=== PATIENT | male | born 1965 | race Caucasian/White ===

== ENCOUNTER 2018-09-27 11:24 | Emergency (ER) | payer OTHER ==
[2018-09-27 11:43] VITALS: BP 124/70; PULSE 87; TEMP 98.4
--- NOTE | 2018-09-27 11:43 | PDOC ---
Rapid Medical Evaluation Time Seen by Provider: 09/27/18 11:39 Medical Evaluation: 09/27/18 11:39 I have performed a brief in-person evaluation of this patient. The patient presents with a chief complaint of: "doesn't feel well", feels weak x 3 days, denies fever, N/V/D, + chills. per she removed "core of an abscess" from the back of his ear yesterday , unknown PMH, hx smoking/daily alcohol use Pertinent physical exam findings: well-appearing, NAD, I have ordered the following: basic labs The patient will proceed to the ED for further evaluation.
[2018-09-27 11:46] VITALS: BMI 18.6
[2018-09-27 12:51] LABS: BASO % 0.5 % (0-2.0); EOS % 1.4 % (0-4.5); HEMOGLOBIN 14.9 GM/dL (11.7-16.9); LYMPH % 19.9 % (8-40); MCH 34.4 pg (25.7-33.7); MEAN CELL VOLUME 101.4 fl (80-96); MEAN PLT VOLUME 7.3 fl (7.5-11.1); NEUT % 66.2 % (42.8-82.8); PLATELET COUNT 271 K/MM3 (134-434); RBC 4.33 M/mm3 (4.00-5.60); WHITE BLOOD COUNT 7.3 K/mm3 (4.0-10.0)
[2018-09-27 13:25] LABS: ALBUMIN 3.5 g/dl (3.4-5.0); BILIRUBIN,TOTAL 0.3 mg/dL (0.2-1); CALCIUM 8.6 mg/dL (8.5-10.1); CREATININE 0.9 mg/dL (0.55-1.3); POTASSIUM 4.3 mmol/L (3.5-5.1); TOT PROT 6.8 g/dl (6.4-8.2)
[2018-09-27 14:19] LABS: MAGNESIUM 2.2 mg/dL (1.8-2.4)
--- NOTE | 2018-09-27 14:38 | PDOC ---
History of Present Illness - General Chief Complaint: Weakness Stated Complaint: WEAKNESS Time Seen by Provider: 09/27/18 11:39 History Source: Patient Exam Limitations: No Limitations - History of Present Illness Initial Comments: 09/27/18 13:45 53-year-old male with no past medical history except for alcohol abuse presents to ED with complaints of generalized fatigue and weakness For the past 2 days without chest pain, shortness of breath, headache, dizziness, chest pain or shortness of breath. Patient denies recent illness, feet fever, chills urinary complaints of bowel complaints. Patient does state is homeless and tries to eat when he can. Timing/Duration: constant Severity: mild Associated Symptoms: reports: weakness Past History - Travel Traveled outside of the country in the last 30 days: No Close contact w/someone who was outside of country & ill: No - Past Medical History Home Medications: Ambulatory Orders Triamcinolone 0.1% Ointment [Aristocort 0.1% Ointment -] 1 applic TP DAILY #1 tube 09/27/18 COPD: No - Immunization History Immunization Up to Date: No - Suicide/Smoking/Psychosocial Hx Smoking History: Current every day smoker Number of Cigarettes Smoked Daily: 10 Information on smoking cessation initiated: No Hx Alcohol Use: Yes Drug/Substance Use Hx: No Patient Lives Alone: No Lives with/in: spouse/SO Review of Systems - Review of Systems Able to Perform ROS?: Yes Constitutional: Yes: Weakness. No: Loss of Appetite, Weight Stable, Unintentional Wgt. Loss, Unexplained wgt Loss HEENTM: No: Symptoms Reported Respiratory: No: Symptoms reported Cardiac (ROS): No: Symptoms Reported ABD/GI: No: Symptoms Reported : No: Symptoms Reported Musculoskeletal: No: Symptoms Reported Integumentary: No: Symptoms Reported Neurological: Yes: Weakness. No: Headache Endocrine: No: Symptoms Reported Hematologic/Lymphatic: No: Symptoms Reported *Physical Exam - Vital Signs Last Vital Signs Temp Pulse Resp BP Pulse Ox 98.4 F 87 18 124/70 99 09/27/18 11:39 09/27/18 11:39 09/27/18 11:39 09/27/18 11:39 09/27/18 11:39 - Physical Exam General Appearance: Yes: Disheveled, Thin. No: Apparent Distress, Alcohol on Breath HEENT: negative: Pale Conjunctivae Neck: positive: Normal Thyroid Respiratory/Chest: positive: Lungs Clear, Normal Breath Sounds. negative: Respiratory Distress, Accessory Muscle Use Cardiovascular: positive: Regular Rhythm, Regular Rate. negative: Murmur Gastrointestinal/Abdominal: positive: Soft. negative: Tenderness Extremity: positive: Normal Inspection Integumentary: positive: Normal Color, Dry, Warm Neurologic: positive: Motor Strength 5/5 (ambulatory) ED Treatment Course - LABORATORY CBC & Chemistry Diagram: 09/27/18 12:30 09/27/18 12:30 - ADDITIONAL ORDERS Additional order review: Laboratory Results 09/27/18 12:30 Sodium 136 Potassium 4.3 Chloride 103 Carbon Dioxide 26 Anion Gap 7 L BUN 14 Creatinine 0.9 Est GFR (CKD-EPI)AfAm 112.62 Est GFR (CKD-EPI)NonAf 97.17 Random Glucose 138 H Calcium 8.6 Magnesium 2.2 Total Bilirubin 0.3 AST 54 H ALT 61 Alkaline Phosphatase 82 Total Protein 6.8 Albumin 3.5 09/27/18 12:30 RBC 4.33 MCV 101.4 H MCHC 34.0 RDW 13.0 MPV 7.3 L Neutrophils % 66.2 Lymphocytes % 19.9 Monocytes % 12.0 H Eosinophils % 1.4 Basophils % 0.5 - RADIOLOGY Radiology Studies Ordered: Category Date Time Status CHEST PA & LAT [RAD] Stat Radiology 09/27/18 12:32 Ordered Medical Decision Making - Medical Decision Making 09/27/18 13:48 CC: Generalized weakness for the past 2 days without fever, chills, joint pain, weight loss, rash, cough or night sweats. Patient is homeless and drinks alcohol on a daily basis. Exam. No acute findings. Plan labs, chest x-ray, EKG and urine ordered 09/27/18 14:49 Laboratory Tests 09/27/18 09/27/18 12:30 12:30 WBC 7.3 Hgb 14.9 Hct 44.0 MCV 101.4 H MPV 7.3 L Monocytes % 12.0 H Sodium 136 Potassium 4.3 Chloride 103 Carbon Dioxide 26 Anion Gap 7 L BUN 14 Creatinine 0.9 Random Glucose 138 H Calcium 8.6 Magnesium 2.2 Total Bilirubin 0.3 AST 54 H ALT 61 Alkaline Phosphatase 82 Total Protein 6.8 Albumin 3.5 Chest x-ray negative for acute findings. Patient ate lunch tray and is refusing to give urine. Patient will be discharged home and requesting transportation . patient also requesting cream for his eczema to his hands and elbows *DC/Admit/Observation/Transfer Diagnosis at time of Disposition: Weakness, Alcohol abuse, Eczema - Discharge Dispostion Disposition: HOME Condition at time of disposition: Good - Prescriptions Prescriptions: Triamcinolone 0.1% Ointment [Aristocort 0.1% Ointment -] 1 applic TP DAILY #1 tube - Referrals - Patient Instructions Printed Discharge Instructions: DI for Fatigue Additional Instructions: Drink plenty of fluids and eat well balanced meals. Use topical ointment as prescribed - Post Discharge Activity
== END 2018-09-27 15:05 | disposition home or self-care (01) ==
LOC: JER 11:24
DX: R53.1 Weakness (principal); F10.10 Alcohol abuse, uncomplicated; F17.210 Nicotine dependence, cigarettes, uncomplicated; L30.9 Dermatitis, unspecified; Z59.0 Homelessness
CPT/HCPCS: 36415; 71046-TC-FY; 80053; 83735; 85025; 99282-25

== ENCOUNTER 2019-12-01 23:36 | Inpatient (IN) | payer OTHER ==
[2019-12-02 00:02] VITALS: BMI 17.9
--- NOTE | 2019-12-02 00:18 | HP ---
CIWA Score Nausea/Vomitin-No Nausea/No Vomiting Muscle Tremors: None Anxiety: 4-Mod. Anxious/Guarded Agitation: 4-Moderately Restless Paroxysmal Sweats: 3 Orientation: 2-Disoriented Date<2 days Tacttile Disturbances: 0-None Auditory Disturbances: 0-None Visual Disturbances: 0-None Headache: 0-None Present CIWA-Ar Total Score: 13 - Admission Criteria [facility] Guidelines: Admission for Medically Managed Detox: Requires at least one of the followin. CIWA greater than 12 2. Seizures within the past 24 hours 3. Delirium tremens within the past 24 hours 4. Hallucinations within the past 24 hours 5. Acute intervention needed for co occurring medical disorder 6. Acute intervention needed for co occurring psychiatric disorder 7. Severe withdrawal that cannot be handled at a lower level of care (continued vomiting, continued diarrhea, abnormal vital signs) requiring intravenous medication and/or fluids 8. Patient presents the following: CIWA greater than 12 Admission Criteria Met: Admission criteria met Admitting History and Physical - Smoking History Smoking history: Current every day smoker Aproximately how many cigarettes per day: 10 - Alcohol/Substance Use Hx Alcohol Use: Yes Admission ROS S - [facility] Chief Complaint: SEEKING DETOX FOR C/O WITHDRAWAL SX'S Allergies/Adverse Reactions: Allergies Allergy/AdvReac Type Severity Reaction Status Date / Time No Known Allergies Allergy Verified 12/01/19 23:52 History of Present Illness: HERE FOR ALCOHOL DETOX. CLIENT IS SELF REFERRED. FIRST ADMISSION. PRESENTS WITH C/O ALCOHOL WITHDRAWAL. " AM GOING TO.... IF i DONT GET ANY LIBRIIUM". HE REPORTS DAILY ALCOHOL INTAKE. LAST BEING A FEW HOURS AGO. "I DRINK ALL DAY". 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 DENIES SEIZURES, SI/HI/AVH. DENIES ANY CLEAN TIME IN THE PAST 12 MONTHS. REPORTS COCAINE ABUSE. DENIES IVDU. HOMELESS, UNEMPLOYED, DENIES LEGALS Exam Limitations: Intoxication (WITH ONSET OF WITHDRAWAL SX'S) - Ebola screening Have you traveled outside of the country in the last 21 days: No Have you had contact with anyone from an Ebola affected area: No Have you been sick,other than usual withdrawal symptoms: No Do you have a fever: No - Review of Systems Constitutional: Loss of Appetite, Malaise, Night Sweats, Changes in sleep, Unintentional Wgt. Loss EENT: reports: No Symptoms Reported Respiratory: reports: No Symptoms reported Cardiac: reports: No Symptoms Reported GI: reports: Poor Appetite, Poor Fluid Intake : reports: No Symptoms Reported Musculoskeletal: reports: Neck Pain (CHRONIC) Integumentary: reports: Flushing, Sweating Neuro: reports: Tremors Endocrine: reports: No Symptoms Reported Hematology: reports: No Symptoms Reported Psychiatric: reports: Agitated (IRRITAble), Anxious, Depressed (DENIES SI) Other Systems: Reviewed and Negative Patient History - Patient Medical History Hx Anemia: No Hx Asthma: No Hx Chronic Obstructive Pulmonary Disease (COPD): No Hx Cancer: No Hx Cardiac Disorders: No Hx Congestive Heart Failure: No Hx Hypertension: No Hx Hypercholesterolemia: No Hx Pacemaker: No HX Cerebrovascular Accident: No Hx Seizures: No Hx Dementia: No Hx Diabetes: No Hx Gastrointestinal Disorders: No Hx Liver Disease: No Hx Genitourinary Disorders: No Hx Sexually Transmitted Disorders: No Hx Renal Disease (ESRD): No Hx Thyroid Disease: No Hx Human Immunodeficiency Virus (HIV): No Hx Hepatitis C: No Hx Depression: Yes (NO MEDS) Hx Suicide Attempt: Yes (LAST ATTEMPT 10 YEARS AGO BY HANGING SELF) Hx Bipolar Disorder: No Hx Schizophrenia: No Other Medical History: DENIES - Patient Surgical History Past Surgical History: No - PPD History Previous Implant?: Yes Documented Results: Negative w/o proof Implanted On Prior [facility] Admission?: No PPD to be Administered?: Yes - Smoking Cessation Smoking history: Current every day smoker Have you smoked in the past 12 months: Yes Aproximately how many cigarettes per day: 20 Cigars Per Day: 0 Hx Chewing Tobacco Use: No Initiated information on smoking cessation: Yes 'Breaking Loose' booklet given: 12/02/19 - Substance & Tx. History Hx Alcohol Use: Yes Hx Substance Use: Yes Substance Use Type: Alcohol, Cocaine Hx Substance Use Treatment: Yes ([facility]) - Substances abused Alcohol Other (specify): Beer, Vodka Substance route: Oral Frequency: Daily Amount used: 10/23oz cans of beer, 4 pints of liquor Age of first use: 18 Date of last use: 12/01/19 PCP Substance route: Smoking Frequency: Daily Amount used: 2 blunts Age of first use: 35 Date of last use: 11/30/19 Crack Substance route: Smoking Frequency: 1-2 times per week Amount used: $100 Age of first use: 32 Date of last use: 12/01/19 Admission Physical Exam [facility] - Vital Signs Vital Signs: Vital Signs - 24 hr 12/01/19 23:55 Temperature 97.1 F L Pulse Rate 101 H Respiratory 18 Rate Blood Pressure 125/82 - Physical General Appearance: Yes: Moderate Distress, Intoxicated, Tremorous (FELT), Irritable, Anxious HEENTM: Yes: EOMI, Normocephalic, Normal Voice, LUCINDA, Pharynx Normal Respiratory: Yes: Chest Non-Tender, Lungs Clear, Normal Breath Sounds, No Respiratory Distress, No Accessory Muscle Use Neck: Yes: No masses,lesions,Nodules, Supple, Trachea in good position Breast: Yes: Breasts Symetrical Cardiology: Yes: Regular Rhythm, S1, S2, Tachycardia Abdominal: Yes: Non Tender, Soft, Increased Bowel Sounds Genitourinary: Yes: Within Normal Limits Back: Yes: Normal Inspection Musculoskeletal: Yes: full range of Motion, Gait Steady Extremities: Yes: Normal Capillary Refill, Normal Range of Motion, Non-Tender, Tremors (FELT) Neurological: Yes: Alert, Motor Strength 5/5, Confused (ABOUT DATE), Depressed Affect, Other (IRRITABLE) Integumentary: Yes: Dry, Warm, Rash (PSORIATIC PATCHES TO ALL EXTREMITIES, TRUNK TO INCLUDE CHEST ABD AND BACK) Lymphatic: Yes: Within Normal Limits - Diagnostic (1) Alcohol dependence with withdrawal, uncomplicated Current Visit: Yes Status: Acute (2) Cocaine dependence, uncomplicated Current Visit: Yes Status: Acute (3) At risk for dehydration due to poor fluid intake Current Visit: Yes Status: Acute (4) Homeless Current Visit: Yes Status: Suspected Comment: REPORTED (5) Depressed affect Current Visit: Yes Status: Acute (6) Alcohol intoxication Current Visit: Yes Status: Acute Qualifiers: Complication of substance-induced condition: uncomplicated Qualified Code(s): F10.920 - Alcohol use, unspecified with intoxication, uncomplicated (7) Psoriasis Current Visit: Yes Status: Chronic Cleared for Admission [facility] - Detox or Rehab [facility] Level of Care: Medically Managed Detox Regimen/Protocol: Librium Claeared for Rehab Admission: No Inpatient Rehab Admission - Rehab Decision to Admit Inpatient rehab admission?: No
[2019-12-02] MEDS ORDERED: MENTHOL/PHENOL 1 EACH UD MM PRN (00:26)
[2019-12-02] MEDS ORDERED: ONDANSETRON *ODT* 4 MG TABLET SL ONE (00:26)
[2019-12-02] MEDS ORDERED: chlordiazePOXIDE HCL 25 MG CAPSULE PO PRN (00:26)
[2019-12-02] MEDS ORDERED: ACETAMINOPHEN 325 MG TABLET (FP) PO PRN ×2 (00:26)
[2019-12-02] MEDS ORDERED: IBUPROFEN 400 MG TABLET (FP) PO PRN (00:26)
[2019-12-02] MEDS ORDERED: NICOTINE POLACRILEX 2 MG GUM BUC PRN (00:26)
[2019-12-02] MEDS ORDERED: MAGNESIUM CITRATE 300 ML BOTTLE PO PRN (00:26)
[2019-12-02] MEDS ORDERED: METHOCARBAMOL 500 MG TABLET PO PRN (00:26)
[2019-12-02] MEDS ORDERED: MAGNESIUM HYDROX 2400MG/30ML ORAL SUSPENSION 30 ML CUP PO PRN (00:26)
[2019-12-02] MEDS ORDERED: guaiFENesin 200 MG/10 ML 10 ML UNIT-DOSE CUPS PO PRN (00:26)
[2019-12-02] MEDS ORDERED: P-EPHED 60MG/TRIPROLIDI 2.5MG TABLET PO PRN (00:26)
[2019-12-02] MEDS ORDERED: MAG HYDROX/AL HYDROX/SIMETH 30 ML UNIT-DOSE CUP PO PRN (00:26)
[2019-12-02] MEDS ORDERED: BISMUTH SUBSALICYLATE 524 MG/30 ML UD PO PRN (00:26)
[2019-12-02] MEDS ORDERED: DICYCLOMINE HCL 10 MG CAPSULE PO PRN (00:26)
[2019-12-02] MEDS ORDERED: HYDROCORTISONE 1% TOPICAL OINT 30 GM TUBE TP PRN (00:48)
[2019-12-02] MEDS: hydrOXYzine PAMOATE 25 MG CAPSULE (FP) PO SCH ×4 (06:21→17:34)
[2019-12-02] MEDS: chlordiazePOXIDE HCL 25 MG CAPSULE PO SCH ×3 (06:21→17:34)
--- NOTE | 2019-12-02 09:10 | PN ---
S CIWA - CIWA Score Nausea/Vomitin-Mild Nausea/No Vomiting Muscle Tremors: 2 Anxiety: 2 Agitation: 2 Paroxysmal Sweats: No Perspiration Orientation: 0-Oriented Tacttile Disturbances: 1-Very Mild Itch/Numbness Auditory Disturbances: 0-None Visual Disturbances: 0-None Headache: 2-Mild CIWA-Ar Total Score: 10 [facility] Progress Note (SOAP) Subjective: alert,irritable,anxious,interrupted sleep,tremor,pain in the body,nausea Objective: 12/02/19 09:09 Vital Signs Temperature 97.7 F 12/02/19 08:51 Pulse Rate 91 H 12/02/19 08:51 Respiratory Rate 16 12/02/19 08:51 Blood Pressure 126/78 12/02/19 08:51 O2 Sat by Pulse Oximetry (%) 97 12/02/19 05:30 12/02/19 09:10 labs pending Assessment: 12/02/19 09:10 withdrawal symptom Plan: continue detox librium regimen
[2019-12-02] MEDS ORDERED: NICOTINE 21 MG/24 HOURS TOPICAL PATCH TD SCH (10:00)
[2019-12-02] MEDS ORDERED: PRENATAL VITAMINS W/ FOLIC ACID TABLET (FP) PO SCH (10:00)
--- NOTE | 2019-12-02 10:57 | EKG ---
Test Reason : Blood Pressure : / mmHG Vent. Rate : 082 BPM Atrial Rate : 082 BPM P-R Int : 146 ms QRS Dur : 096 ms QT Int : 386 ms P-R-T Axes : 073 069 063 degrees QTc Int : 450 ms NORMAL SINUS RHYTHM NORMAL ECG WHEN COMPARED WITH ECG OF 07-MAY-2010 14:19, QT HAS LENGTHENED Confirmed by Emilia Holloway ([id number]) on 12/02/2019 10:57:09 AM Referred By: Confirmed By:Emilia Holloway
--- NOTE | 2019-12-02 10:58 | CONSULT ---
[facility] Psychiatric Consult - Data Date of interview: 12/02/19 Admission source: [facility] Identifying data: First visit to [facility] and admission to [address] [place] [address] for this 54 y/o male self-referred for detoxification treatment. LASHANDA issues : alcohol, nicotine, phencyclidine. 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 Substance Abuse History: Discussed with the patient. LASHANDA profile as follows : Smoking history: Current every day smoker. Have you smoked in the past 12 months: Yes. Aproximately how many cigarettes per day: 20. Cigars Per Day: 0. Hx Chewing Tobacco Use: No. Initiated information on smoking cessation: Yes. 'Breaking Loose' booklet given: 12/02/19. - Substance & Tx. History. Hx Alcohol Use: Yes. Hx Substance Use: Yes. Substance Use Type: Alcohol, Cocaine. Hx Substance Use Treatment: Yes ([facility]). - Substances abused. Alcohol. Other (specify): Beer, Vodka. Substance route: Oral. Frequency: Daily. Amount used: 18oz cans of beer, 4 pints of liquor. Age of first use: 18. Date of last use: 12/01/19. PCP. Substance route: Smoking. Frequency: Daily. Amount used: 2 blunts. Age of first use: 35. Date of last use: 11/30/19. Crack. Substance route: Smoking. Frequency: 1-2 times per week. Amount used: $100. Age of first use: 32. Date of last use: 12/01/19 Medical History: Medical history is remarkable for psoriasis. Psychiatric History: Patient denies history of psychiatric hospitalizations, OPD care or suicide attempts. Physical/Sexual Abuse/Trauma History: Patient denies. Additional Comment: No toxicology for review. Mental Status Exam - Mental Status Exam Alert and Oriented to: Time, Place, Person Cognitive Function: Good Patient Appearance: Unkempt, Disheveled Mood: Nervous, Withdrawn, Irritable Affect: Mood Congruent, Constricted Patient Behavior: Fatigued, Appropriate, Cooperative Speech Pattern: Clear, Appropriate Voice Loudness: Normal Thought Process: Intact, Goal Oriented Thought Disorder: Not Present Hallucinations: Denies Suicidal Ideation: Denies Homicidal Ideation: Denies Insight/Judgement: Poor Sleep: Well (as per self-report) Appetite: Good Gait/Station: Normal Psychiatric Findings - Problem List ([place] 1, 2,3) (1) Alcohol dependence with withdrawal, uncomplicated Current Visit: Yes Status: Acute (2) Cocaine dependence, uncomplicated Current Visit: Yes Status: Chronic (3) Phencyclidine abuse Current Visit: Yes Status: Chronic (4) Nicotine dependence Current Visit: Yes Status: Chronic - Initial Treatment Plan Initial Treatment Plan: Psychoeducation. Sleep hygiene. Detoxification. Observation.
[2019-12-02 11:49] LABS: HEMATOCRIT 42.7 % (35.4-49); HEMOGLOBIN 14.2 GM/dL (11.7-16.9); MCH 34.4 pg (25.7-33.7); MCHC 33.2 g/dl (32.0-35.9); MEAN CELL VOLUME 103.5 fl (80-96); PLATELET COUNT 243 K/MM3 (134-434); RBC 4.13 M/mm3 (4.00-5.60); RDW 12.2 % (11.9-15.9); WHITE BLOOD COUNT 5.8 K/mm3 (4.0-10.0)
[2019-12-02 11:57] LABS: ALBUMIN 3.7 g/dl (3.4-5.0); BILIRUBIN,TOTAL 0.7 mg/dL (0.2-1); BLOOD UREA NITROGEN 15.9 mg/dL (7-18); CALCIUM 8.7 mg/dL (8.5-10.1); CREATININE 0.8 mg/dL (0.55-1.3); POTASSIUM 3.4 mmol/L (3.5-5.1)
[2019-12-02 16:43] LABS: PH,URINE 5.5 (5.0-8.0); URINE APPEARANCE CLEAR; URINE BILIRUBIN NEGATIVE (NEGATIVE); URINE COLOR YELLOW; URINE GLUCOSE (UA) NEGATIVE (NEGATIVE); URINE KETONE NEGATIVE (NEGATIVE); URINE LEUK ESTERASE NEGATIVE (NEGATIVE); URINE NITRITE NEGATIVE (NEGATIVE); URINE PROTEIN NEGATIVE (NEGATIVE); URINE UROBILINOGEN 0.2 mg/dL (0.2-1.0)
[2019-12-02 17:06] VITALS: BP 139/88; PULSE 81; TEMP 97.1
--- NOTE | 2019-12-02 19:43 | DS ---
[facility] Detox Discharge Summary Admission Date: 12/02/19 Discharge Date: 12/02/19 (AMA) - History Present History: Alcohol Dependence, Cocaine Dependence, Opioid Dependence, Pcp Dependence Additional Comments: Was informed RN that patient left AMA, refused to wait for the provider to examine. Pertinent Past History: History of Psoriasis, depression, nicotine, alcohol, crack/cocaine, and PCP use disorder. - Physical Exam Results Vital Signs: Vital Signs Temperature 97.1 F L 12/02/19 16:38 Pulse Rate 81 12/02/19 16:38 Respiratory Rate 16 12/02/19 16:38 Blood Pressure 139/88 12/02/19 16:38 O2 Sat by Pulse Oximetry (%) 99 12/02/19 13:03 Vital Signs 12/02/19 12/02/19 13:03 16:38 Temperature 97.7 F 97.1 F L Pulse Rate 85 81 Respiratory 18 16 Rate Blood Pressure 128/76 139/88 O2 Sat by Pulse 99 Oximetry (%) Pertinent Admission Physical Exam Findings: Withdrawal symptoms - Medication Discharge Medications: Ambulatory Orders Triamcinolone 0.1% Ointment [Aristocort 0.1% Ointment -] 1 applic TP DAILY #1 tube 09/27/18 Hydrocortisone 2.5% Lotion [Hytone 2.5% Lotion -] 1 applic TP BID 12/01/19 - Diagnosis (1) Alcohol dependence with withdrawal, uncomplicated Current Visit: Yes Status: Acute (2) Cocaine dependence, uncomplicated Current Visit: Yes Status: Chronic (3) Nicotine dependence Current Visit: Yes Status: Chronic (4) Phencyclidine abuse Current Visit: Yes Status: Chronic (5) Psoriasis Current Visit: Yes Status: Chronic - AMA Did Patient Leave Against Medical Advice: Yes ( Refused to wait for provider to examine.)
[2019-12-02] MEDS ORDERED: THIAMINE HCL 100 MG TABLET (FP) PO SCH (22:00)
[2019-12-02] MEDS ORDERED: MELATONIN 5 MG TABLETS PO SCH (22:00)
[2019-12-03] MEDS ORDERED: chlordiazePOXIDE HCL 25 MG CAPSULE PO SCH (05:00)
[2019-12-04] MEDS ORDERED: chlordiazePOXIDE HCL 10 MG CAPSULE PO PRN
[2019-12-04] MEDS ORDERED: chlordiazePOXIDE HCL 10 MG CAPSULE PO SCH (05:00)
[2019-12-05] MEDS ORDERED: chlordiazePOXIDE HCL 10 MG CAPSULE PO SCH (05:00)
[2019-12-06] MEDS ORDERED: chlordiazePOXIDE HCL 10 MG CAPSULE PO ONE (05:00)
== END 2019-12-02 19:30 | disposition left against medical advice (07) | DRG 770 ==
LOC: YASAS 23:36 → Y3N 12-02 01:05
PROVIDERS: ADMIT Allergy & Immunology; ATTEND Allergy & Immunology
PROC: HZ2ZZZZ Detoxification Services for Substance Abuse Treatment (ICD-10-PCS; principal; 2019-12-02)
DX: F10.230 Alcohol dependence with withdrawal, uncomplicated (principal); F14.20 Cocaine dependence, uncomplicated; F16.20 Hallucinogen dependence, uncomplicated; F17.210 Nicotine dependence, cigarettes, uncomplicated; F32.9 Major depressive disorder, single episode, unspecified; L40.9 Psoriasis, unspecified; R63.8 Other symptoms and signs concerning food and fluid intake; R45.89 Other symptoms and signs involving emotional state; Z91.5 Personal history of self-harm; Z59.0 Homelessness
CPT/HCPCS: 36415; 80053; 81003; 85027; 86780; 93005; 93010; U0003

== ENCOUNTER 2020-05-27 17:59 | Inpatient (IN) | payer OTHER ==
[2020-05-27 18:56] VITALS: BMI 19.5
[2020-05-27] MEDS ORDERED: ACETAMINOPHEN 325 MG TABLET (FP) PO PRN ×2 (19:52)
[2020-05-27] MEDS ORDERED: NICOTINE POLACRILEX 2 MG GUM BUC PRN (19:52)
[2020-05-27] MEDS ORDERED: MAG HYDROX/AL HYDROX/SIMETH 30 ML UNIT-DOSE CUP PO PRN (19:52)
[2020-05-27] MEDS ORDERED: hydrOXYzine PAMOATE 25 MG CAPSULE (FP) PO PRN (19:52)
[2020-05-27] MEDS ORDERED: MAGNESIUM HYDROX 2400MG/30ML ORAL SUSPENSION 30 ML CUP PO PRN (19:52)
[2020-05-27] MEDS ORDERED: BISMUTH SUBSALICYLATE 524 MG/30 ML UD PO PRN (19:52)
[2020-05-27] MEDS ORDERED: MELATONIN 5 MG TABLETS PO PRN (19:52)
[2020-05-27] MEDS ORDERED: MAGNESIUM CITRATE 300 ML BOTTLE PO PRN (19:52)
[2020-05-27] MEDS ORDERED: MENTHOL/PHENOL 1 EACH UD MM PRN (19:52)
[2020-05-27] MEDS ORDERED: ONDANSETRON *ODT* 4 MG TABLET SL PRN (19:52)
[2020-05-27] MEDS ORDERED: METHOCARBAMOL 500 MG TABLET PO PRN (19:52)
[2020-05-27] MEDS ORDERED: chlordiazePOXIDE HCL 25 MG CAPSULE PO PRN (19:53)
[2020-05-27] MEDS ORDERED: chlordiazePOXIDE HCL 25 MG CAPSULE PO ONE (19:53)
[2020-05-27] MEDS: AMOXICILLIN 500 MG CAPSULE (FP) PO SCH (22:35)
[2020-05-27] MEDS: THIAMINE HCL 100 MG TABLET (FP) PO SCH (22:35)
[2020-05-27] MEDS: chlordiazePOXIDE HCL 25 MG CAPSULE PO SCH (22:35)
[2020-05-27] MEDS: BETAMETHASONE DIP 0.05% TP LOTION 30 ML BOTTLE TP SCH (23:32)
[2020-05-28] MEDS: chlordiazePOXIDE HCL 25 MG CAPSULE PO SCH ×4 (05:24→22:03)
[2020-05-28] MEDS: AMOXICILLIN 500 MG CAPSULE (FP) PO SCH ×2 (10:11→22:03)
[2020-05-28] MEDS: PRENATAL VITAMINS W/ FOLIC ACID TABLET (FP) PO SCH (10:11)
[2020-05-28] MEDS: IBUPROFEN 400 MG TABLET (FP) PO PRN ×2 (10:13→17:31)
[2020-05-28] MEDS: BETAMETHASONE DIP 0.05% TP LOTION 30 ML BOTTLE TP SCH (10:16)
[2020-05-28 10:29] LABS: POTASSIUM 3.9 mmol/L (3.5-5.1)
[2020-05-28 10:32] LABS: ALBUMIN 3.5 g/dl (3.4-5.0); BLOOD UREA NITROGEN 13.6 mg/dL (7-18); CALCIUM 8.9 mg/dL (8.5-10.1)
[2020-05-28 10:35] LABS: CREATININE 0.8 mg/dL (0.55-1.3)
[2020-05-28 10:37] LABS: BILIRUBIN,TOTAL 1.3 mg/dL (0.2-1); TOT PROT 6.7 g/dl (6.4-8.2)
[2020-05-28 10:44] LABS: HEMATOCRIT 41.9 % (35.4-49); HEMOGLOBIN 14.2 GM/dL (11.7-16.9); MCH 34.6 pg (25.7-33.7); MCHC 33.9 g/dl (32.0-35.9); MEAN CELL VOLUME 101.9 fl (80-96); MEAN PLT VOLUME 7.6 fl (7.5-11.1); PLATELET COUNT 297 K/MM3 (134-434); RBC 4.12 M/mm3 (4.00-5.60); RDW 12.6 % (11.9-15.9); WHITE BLOOD COUNT 6.4 K/mm3 (4.0-10.0)
[2020-05-28] MEDS ORDERED: COLLOIDAL OATMEAL 1 BAR EACH TP ONE (11:06)
[2020-05-28] MEDS: CHOLECALCIFEROL (VIT D3) 1,000 UNIT (25 MCG) TABLET PO SCH (11:24)
[2020-05-28] MEDS: THIAMINE HCL 100 MG TABLET (FP) PO SCH (22:03)
[2020-05-29] MEDS: chlordiazePOXIDE HCL 25 MG CAPSULE PO SCH ×2 (05:23→10:04)
[2020-05-29] MEDS: CHOLECALCIFEROL (VIT D3) 1,000 UNIT (25 MCG) TABLET PO SCH (10:02)
[2020-05-29] MEDS: PRENATAL VITAMINS W/ FOLIC ACID TABLET (FP) PO SCH (10:02)
[2020-05-29] MEDS: BETAMETHASONE DIP 0.05% TP LOTION 30 ML BOTTLE TP SCH (10:07)
[2020-05-29] MEDS: AMOXICILLIN 500 MG CAPSULE (FP) PO SCH (10:56)
[2020-05-29 12:38] VITALS: BP 139/90; PULSE 99; TEMP 97.5
[2020-05-30] MEDS ORDERED: chlordiazePOXIDE HCL 10 MG CAPSULE PO PRN
[2020-05-30] MEDS ORDERED: chlordiazePOXIDE HCL 10 MG CAPSULE PO SCH (05:00)
[2020-05-31] MEDS ORDERED: chlordiazePOXIDE HCL 10 MG CAPSULE PO SCH (05:00)
[2020-06-01] MEDS ORDERED: chlordiazePOXIDE HCL 10 MG CAPSULE PO ONE (05:00)
== END 2020-05-29 13:37 | disposition left against medical advice (07) | DRG 770 ==
LOC: YASAS 17:59 → Y3N 20:00
PROVIDERS: ADMIT Allergy & Immunology; ATTEND Allergy & Immunology
PROC: HZ2ZZZZ Detoxification Services for Substance Abuse Treatment (ICD-10-PCS; principal; 2020-05-27)
DX: F10.230 Alcohol dependence with withdrawal, uncomplicated (principal); F14.20 Cocaine dependence, uncomplicated; F16.20 Hallucinogen dependence, uncomplicated; F12.10 Cannabis abuse, uncomplicated; F17.210 Nicotine dependence, cigarettes, uncomplicated; F10.220 Alcohol dependence with intoxication, uncomplicated; E80.6 Other disorders of bilirubin metabolism; J06.9 Acute upper respiratory infection, unspecified; L40.0 Psoriasis vulgaris; L40.50 Arthropathic psoriasis, unspecified; R53.1 Weakness; R74.01 Elevation of levels of liver transaminase levels
CPT/HCPCS: 36415; 80053; 85027; 86780; C9803; U0003

== ENCOUNTER 2020-11-23 09:14 | Emergency (ER) | payer OTHER ==
[2020-11-23 09:26] VITALS: BP 108/70; PULSE 93; TEMP 97.7; BMI 19.2
[2020-11-23] MEDS ORDERED: DEXAMETHASONE SOD PHOSPHATE 10 MG/1 ML VIAL IM ONE (09:52)
[2020-11-23] MEDS ORDERED: DEXAMETHASONE SOD PHOSPHATE 10 MG/1 ML VIAL ONE (10:00)
== END 2020-11-23 10:04 | disposition home or self-care (01) ==
LOC: JERFT 09:14 → JER 09:14 → JERFT 10:04
PROC: 3E023GC Introduction of Other Therapeutic Substance into Muscle, Percutaneous Approach (ICD-10-PCS; principal; 2020-11-23)
DX: L40.9 Psoriasis, unspecified (principal)
CPT/HCPCS: 99284-25; J1100

== ENCOUNTER 2021-05-17 15:11 | Emergency (ER) | payer OTHER ==
[2021-05-17 15:28] VITALS: BP 121/70; PULSE 90; TEMP 98; BMI 21.2
[2021-05-17] MEDS ORDERED: KETOROLAC TROMETHAMINE 30 MG/1 ML VIAL IM ONE (16:21)
[2021-05-22] MEDS ORDERED: IBUPROFEN 400 MG TABLET (FP) PO ONE (00:12)
[2021-05-22] MEDS ORDERED: IBUPROFEN 600 MG TABLET (FP) PO ONE (15:43)
== END 2021-05-17 17:25 | disposition left against medical advice (07) ==
LOC: JERFT 15:11
PROC: 3E0233Z Introduction of Anti-inflammatory into Muscle, Percutaneous Approach (ICD-10-PCS; principal; 2021-05-17)
DX: M79.605 Pain in left leg (principal)
CPT/HCPCS: 96372; 99284-25

== ENCOUNTER 2021-05-21 00:43 | Emergency (ER) | payer OTHER ==
[2021-05-21] MEDS ORDERED: ACETAMINOPHEN 325 MG TABLET (FP) PO ONE (01:12)
[2021-05-21] MEDS ORDERED: ACETAMINOPHEN 325 MG TABLET (FP) ONE (01:38)
[2021-05-21 01:40] VITALS: BP 148/84; PULSE 95; TEMP 98.8; BMI 20.9
== END 2021-05-21 06:55 | disposition home or self-care (01) ==
LOC: JER 00:43
DX: M79.605 Pain in left leg (principal)
CPT/HCPCS: 73560-TC-LT-FY; 73590-TC-LT-FY; 99284-25

== ENCOUNTER 2021-05-21 23:12 | Emergency (ER) | payer OTHER ==
[2021-05-21 23:21] VITALS: BP 136/99; PULSE 90; TEMP 97; BMI 20.5
[2021-05-21] MEDS ORDERED: IBUPROFEN 400 MG TABLET (FP) PO ONE (23:55)
== END 2021-05-22 00:40 | disposition home or self-care (01) ==
LOC: JER 23:12
DX: M79.605 Pain in left leg (principal)
CPT/HCPCS: 99283-25

== ENCOUNTER 2021-05-22 13:52 | Emergency (ER) | payer OTHER ==
[2021-05-22 14:50] VITALS: BMI 21.2
[2021-05-22] MEDS ORDERED: IBUPROFEN 600 MG TABLET (FP) PO ONE (15:35)
[2021-05-23 07:26] VITALS: BP 151/84; PULSE 78; TEMP 98.4
== END 2021-05-23 09:33 | disposition left against medical advice (07) ==
LOC: JER 13:52 → JERFT 13:52 → JER 05-23 09:33
DX: M79.605 Pain in left leg (principal)
CPT/HCPCS: 99283-25; C9803; U0003; U0005

== ENCOUNTER 2021-05-27 17:40 | Emergency (ER) | payer OTHER ==
[2021-05-27 18:14] VITALS: BP 150/92; PULSE 96; TEMP 98.7; BMI 21.2
[2021-05-27] MEDS ORDERED: IBUPROFEN 400 MG TABLET (FP) PO ONE ×2 (20:50→20:51)
== END 2021-05-27 20:53 | disposition home or self-care (01) ==
LOC: JER 17:40
DX: M79.605 Pain in left leg (principal)
CPT/HCPCS: 99283-25

== ENCOUNTER 2021-06-01 01:37 | Emergency (ER) | payer OTHER ==
[2021-06-01 02:06] VITALS: BMI 21.2
[2021-06-01] MEDS ORDERED: ACETAMINOPHEN 1000 MG/100 ML BAG IVPB ONE (05:07)
[2021-06-01] MEDS ORDERED: ACETAMINOPHEN INJECTION 100 ML IVPB ONE (05:17)
[2021-06-01 06:00] LABS: CHLORIDE 104 mmol/L (98-107); INR 0.85 (0.83-1.09); PROTHROMBIN TIME (PATIENT) 9.8 SEC (9.7-13.0); SODIUM 138 mmol/L (136-145)
[2021-06-01 06:02] LABS: CALCIUM 8.7 mg/dL (8.5-10.1)
[2021-06-01 06:03] LABS: ACTIVATED PTT 30.1 SECONDS (25.2-36.5); ALBUMIN 3.7 g/dl (3.4-5.0); ANION GAP 9 MMOL/L (8-16); BASO % 0.5 % (0-2.0); CO2 26 mmol/L (21-32); EOS % 0.8 % (0-4.5); GLUCOSE,RANDOM 187 mg/dL (74-106); HEMATOCRIT 40.9 % (35.4-49); HEMOGLOBIN 13.7 GM/dL (11.7-16.9); LYMPH % 22.7 % (8-40); MCH 34.3 pg (25.7-33.7); MCHC 33.6 g/dl (32.0-35.9); MEAN CELL VOLUME 102.2 fl (80-96); MEAN PLT VOLUME 6.8 fl (7.5-11.1); PLATELET COUNT 427 10^3/uL (134-434); RDW 12.3 % (11.9-15.9)
[2021-06-01 06:06] LABS: CREATININE 0.9 mg/dL (0.55-1.3); SGOT/AST 46 U/L (15-37); SGPT/ALT 46 U/L (13-61)
[2021-06-01 06:07] LABS: BILIRUBIN,TOTAL 0.2 mg/dL (0.2-1); TOT PROT 7.1 g/dl (6.4-8.2)
[2021-06-01 06:09] LABS: ALK PHOS 84 U/L (45-117)
[2021-06-01 07:29] VITALS: BP 115/67; PULSE 92; TEMP 98.1
== END 2021-06-02 09:05 | disposition left against medical advice (07) ==
LOC: JER 01:37
PROC: 3E033NZ Introduction of Analgesics, Hypnotics, Sedatives into Peripheral Vein, Percutaneous Approach (ICD-10-PCS; principal; 2021-06-01)
DX: M79.605 Pain in left leg (principal)
CPT/HCPCS: 36415; 70450-TC; 72125-TC; 73590-TC-LT-FY; 80053; 82550; 82553; 84484; 85025; 85610; 85730; 86850; 86900; 86901; 93005; 93010; 99285-25; J0131

== ENCOUNTER 2021-06-04 21:36 | Emergency (ER) | payer OTHER ==
[2021-06-04 21:44] VITALS: BMI 20.7
[2021-06-05] MEDS ORDERED: ACETAMINOPHEN 325 MG TABLET (FP) PO ONE (02:39)
[2021-06-05] MEDS ORDERED: ACETAMINOPHEN 325 MG TABLET (FP) ONE (02:53)
[2021-06-05 06:13] VITALS: BP 152/92; PULSE 87; TEMP 98.3
== END 2021-06-05 06:40 | disposition left against medical advice (07) ==
LOC: JER 21:36
DX: F10.99 Alcohol use, unspecified with unspecified alcohol-induced disorder (principal)
CPT/HCPCS: 99283-25

== ENCOUNTER 2021-06-07 18:14 | Emergency (ER) | payer OTHER ==
[2021-06-07 18:42] VITALS: BP 142/84; PULSE 79; TEMP 97.9; BMI 23.7
[2021-06-07] MEDS ORDERED: IBUPROFEN 600 MG TABLET (FP) PO ONE (19:12)
== END 2021-06-07 20:01 | disposition home or self-care (01) ==
LOC: JERFT 18:14
DX: M79.675 Pain in left toe(s) (principal); Z76.5 Malingerer [conscious simulation]
CPT/HCPCS: 99283-25

== ENCOUNTER 2021-06-08 17:56 | Emergency (ER) | payer OTHER ==
[2021-06-08 18:08] VITALS: BP 144/89; PULSE 89; TEMP 98.2; BMI 32.3
[2021-06-08] MEDS ORDERED: CEPHALEXIN MONOHYDRATE 500 MG CAPSULE (UD) PO ONE (18:13)
[2021-06-08] MEDS ORDERED: CEPHALEXIN MONOHYDRATE 500 MG CAPSULE (UD) ONE (18:20)
[2021-06-08] MEDS ORDERED: IBUPROFEN 400 MG TABLET (FP) PO ONE ×2 (18:35→18:36)
== END 2021-06-08 18:59 | disposition home or self-care (01) ==
LOC: JERFT 17:56
DX: S90.111A Contusion of right great toe without damage to nail, initial encounter (principal); L03.90 Cellulitis, unspecified; Y99.9 Unspecified external cause status
CPT/HCPCS: 99283-25

== ENCOUNTER 2021-06-20 23:04 | Emergency (ER) | payer OTHER ==
[2021-06-20 23:14] VITALS: BMI 28.7
[2021-06-21] MEDS ORDERED: DIPHTH,PERTUSS(ACELL),TET 0.5 ML DISP.SYRIN IM ONE ×2 (04:44→05:16)
[2021-06-21] MEDS ORDERED: ACETAMINOPHEN 500 MG TABLET (FP) PO ONE (04:44)
[2021-06-21] MEDS ORDERED: ACETAMINOPHEN 325 MG TABLET (FP) ONE (05:16)
[2021-06-21 11:17] VITALS: BP 135/84; PULSE 80; TEMP 98.6
== END 2021-06-21 11:17 | disposition home or self-care (01) ==
LOC: JER 23:04
PROC: 3E0234Z Introduction of Serum, Toxoid and Vaccine into Muscle, Percutaneous Approach (ICD-10-PCS; principal; 2021-06-20)
DX: M79.675 Pain in left toe(s) (principal)
CPT/HCPCS: 90471; 90715; 99284-25

== ENCOUNTER 2021-06-24 15:42 | Emergency (ER) | payer OTHER ==
[2021-06-24 16:17] VITALS: BP 115/79; PULSE 85; TEMP 98.1; BMI 27.9
== END 2021-06-24 19:46 | disposition home or self-care (01) ==
LOC: JER 15:42
DX: M79.675 Pain in left toe(s) (principal)
CPT/HCPCS: 99281-25

== ENCOUNTER 2021-07-04 20:24 | Emergency (ER) | payer OTHER ==
[2021-07-04 20:47] VITALS: BP 119/77; PULSE 101; TEMP 98.1; BMI 25.0
[2021-07-05] MEDS ORDERED: MAG HYDROX/AL HYDROX/SIMETH -MYLANTA- ORAL SUSPENSION PO ONE (02:25)
[2021-07-05 02:35] LABS: BASO % 0.7 % (0-2.0); EOS % 3.2 % (0-4.5); HEMOGLOBIN 13.4 GM/dL (11.7-16.9); LYMPH % 22.5 % (8-40); MCH 34.4 pg (25.7-33.7); MCHC 34.3 g/dl (32.0-35.9); MEAN CELL VOLUME 100.2 fl (80-96); MEAN PLT VOLUME 6.1 fl (7.5-11.1); MONO % 11.3 % (3.8-10.2); NEUT % 62.3 % (42.8-82.8); PLATELET COUNT 418 10^3/uL (134-434); RBC 3.89 M/mm3 (4.00-5.60); RDW 12.4 % (11.9-15.9); WHITE BLOOD COUNT 5.7 K/mm3 (4.0-10.0)
[2021-07-05] MEDS ORDERED: MAG HYDROX/AL HYDROX/SIMETH 30 ML UNIT-DOSE CUP ONE (02:39)
[2021-07-05 02:56] LABS: CALCIUM 9.1 mg/dL (8.5-10.1)
[2021-07-05 02:57] LABS: ALBUMIN 3.1 g/dl (3.4-5.0)
[2021-07-05 03:00] LABS: CREATININE 0.8 mg/dL (0.55-1.3)
[2021-07-05 03:01] LABS: BILIRUBIN,TOTAL 0.2 mg/dL (0.2-1); TOT PROT 7.1 g/dl (6.4-8.2)
== END 2021-07-05 06:38 | disposition home or self-care (01) ==
LOC: JER 20:24 → JERFT 20:24 → JER 07-05 06:38
DX: F10.10 Alcohol abuse, uncomplicated (principal); R10.9 Unspecified abdominal pain
CPT/HCPCS: 36415; 74176-TC; 74177-TC; 80053; 82550; 83690; 85025; 99285-25

== ENCOUNTER 2021-07-14 03:30 | Emergency (ER) | payer OTHER ==
[2021-07-14 03:38] VITALS: BP 145/82; PULSE 89; TEMP 98.6; BMI 20.7
[2021-07-14] MEDS ORDERED: IBUPROFEN 400 MG TABLET (FP) PO ONE ×2 (04:17→04:21)
== END 2021-07-14 04:50 | disposition home or self-care (01) ==
LOC: JER 03:30
DX: L98.8 Other specified disorders of the skin and subcutaneous tissue (principal); K59.00 Constipation, unspecified
CPT/HCPCS: 99283-25

== ENCOUNTER 2021-08-07 21:05 | Emergency (ER) | payer OTHER ==
[2021-08-07 21:24] VITALS: BP 124/84; PULSE 86; TEMP 98.1; BMI 20.5
== END 2021-08-08 06:27 | disposition home or self-care (01) ==
LOC: JER 21:05
DX: L40.9 Psoriasis, unspecified (principal)
CPT/HCPCS: 99283-25

== ENCOUNTER 2021-08-14 17:43 | Emergency (ER) | payer OTHER ==
[2021-08-14 17:56] VITALS: TEMP 98.8
[2021-08-15 05:24] VITALS: BP 137/96; PULSE 93
== END 2021-08-15 05:30 | disposition home or self-care (01) ==
LOC: JER 17:43
DX: E86.0 Dehydration (principal); R07.9 Chest pain, unspecified
CPT/HCPCS: 93005; 93010; 99285-25

== ENCOUNTER 2021-08-16 18:00 | Emergency (ER) | payer OTHER ==
[2021-08-16 18:58] VITALS: BMI 26.9
[2021-08-16] MEDS ORDERED: SODIUM CHLORIDE 0.9% 500 ML INFUS.BAG IV ONE (21:24)
[2021-08-16] MEDS ORDERED: ACETAMINOPHEN 1000 MG/100 ML BAG IVPB ONE (21:25)
[2021-08-16] MEDS ORDERED: METOCLOPRAMIDE HCL INJECTION 10 MG/2 ML VIAL IVPUSH ONE (21:25)
[2021-08-16] MEDS ORDERED: METOCLOPRAMIDE HCL INJECTION 10 MG/2 ML VIAL ONE (21:43)
[2021-08-16] MEDS ORDERED: ACETAMINOPHEN INJECTION 100 ML IVPB ONE (21:43)
[2021-08-16 22:34] LABS: BASO % 0.5 % (0-2.0); EOS % 2.4 % (0-4.5); HEMATOCRIT 38.1 % (35.4-49); HEMOGLOBIN 13.1 GM/dL (11.7-16.9); LYMPH % 42.9 % (8-40); MCH 34.1 pg (25.7-33.7); MCHC 34.5 g/dl (32.0-35.9); MEAN CELL VOLUME 98.7 fl (80-96); MEAN PLT VOLUME 6.4 fl (7.5-11.1); MONO % 8.2 % (3.8-10.2); PLATELET COUNT 317 10^3/uL (134-434); RBC 3.86 M/mm3 (4.00-5.60); RDW 12.3 % (11.9-15.9); WHITE BLOOD COUNT 5.7 K/mm3 (4.0-10.0)
[2021-08-16 22:57] LABS: CALCIUM 8.7 mg/dL (8.5-10.1)
[2021-08-16 22:58] LABS: ALBUMIN 3.3 g/dl (3.4-5.0); BLOOD UREA NITROGEN 14.9 mg/dL (7-18)
[2021-08-16 23:01] LABS: CREATININE 1.1 mg/dL (0.55-1.3)
[2021-08-16 23:03] LABS: BILIRUBIN,TOTAL 0.2 mg/dL (0.2-1); TOT PROT 6.8 g/dl (6.4-8.2)
[2021-08-17 04:58] VITALS: BP 158/85; PULSE 86; TEMP 98.1
== END 2021-08-17 06:05 | disposition home or self-care (01) ==
LOC: JER 18:00
PROC: 3E0333Z Introduction of Anti-inflammatory into Peripheral Vein, Percutaneous Approach (ICD-10-PCS; principal; 2021-08-16)
PROC: 3E033GC Introduction of Other Therapeutic Substance into Peripheral Vein, Percutaneous Approach (ICD-10-PCS; 2021-08-16)
DX: F10.129 Alcohol abuse with intoxication, unspecified (principal)
CPT/HCPCS: 36415; 80053; 85025; 93005; 93010; 99284-25

== ENCOUNTER 2022-06-25 01:46 | Emergency (ER) | payer OTHER ==
[2022-06-25 01:50] VITALS: BP 133/80; PULSE 71; RESP 16; TEMP 97.4; BMI 21.2
[2022-06-25] MEDS ORDERED: ACETAMINOPHEN 325 MG TABLET (FP) PO ONE (02:26)
[2022-06-25] MEDS ORDERED: ACETAMINOPHEN 325 MG TABLET (FP) ONE (02:30)
== END 2022-06-25 06:30 | disposition home or self-care (01) ==
LOC: JER 01:46
DX: M79.671 Pain in right foot (principal); M79.672 Pain in left foot
CPT/HCPCS: 73630-TC-RT-FY; 99283-25

== ENCOUNTER 2022-07-01 20:13 | Observation (INO) | payer OTHER ==
[2022-07-01] MEDS ORDERED: IBUPROFEN 600 MG TABLET (FP) PO ONE ×2 (23:16→23:23)
[2022-07-01] MEDS ORDERED: VANCOMYCIN 1 GM in D5W (PRE-DOCKED) 1,000 MG/250 ML IVPB ONE (23:39)
[2022-07-01] MEDS ORDERED: DALBAVANCIN HCL 1,500 MG in DEXTROSE 5%-WATER - 500 ML IVPB ONE (23:43)
[2022-07-02] MEDS ORDERED: DALBAVANCIN HCL 500 MG VIAL (RESTRICTED TO ID ONLY) IVPB ONE (00:30)
[2022-07-02 01:11] LABS: BASO % 1.3 % (0-2.0); HEMATOCRIT 36.6 % (35.4-49); HEMOGLOBIN 12.6 GM/dL (11.7-16.9); MCH 35.2 pg (25.7-33.7); MCHC 34.4 g/dl (32.0-35.9); MEAN CELL VOLUME 102.5 fl (80-96); MEAN PLT VOLUME 6.3 fl (7.5-11.1); MONO % 16.2 % (3.8-10.2); NEUT % 62.5 % (42.8-82.8); PLATELET COUNT 369 10^3/uL (134-434); RBC 3.57 M/mm3 (4.00-5.60); RDW 12.6 % (11.9-15.9); WHITE BLOOD COUNT 5.8 K/mm3 (4.0-10.0)
[2022-07-02 01:32] LABS: CALCIUM 8.9 mg/dL (8.5-10.1)
[2022-07-02 01:33] LABS: BLOOD UREA NITROGEN 8.9 mg/dL (7-18)
[2022-07-02 01:36] LABS: CREATININE 0.6 mg/dL (0.55-1.3)
[2022-07-02 01:37] LABS: BILIRUBIN,TOTAL 0.2 mg/dL (0.2-1)
[2022-07-02 01:38] LABS: TOT PROT 6.7 g/dl (6.4-8.2)
[2022-07-02 07:07] LABS: HEMATOCRIT 38.9 % (35.4-49); HEMOGLOBIN 13.1 GM/dL (11.7-16.9); MCH 34.7 pg (25.7-33.7); MCHC 33.8 g/dl (32.0-35.9); MEAN CELL VOLUME 102.6 fl (80-96); MEAN PLT VOLUME 6.4 fl (7.5-11.1); PLATELET COUNT 387 10^3/uL (134-434); RBC 3.79 M/mm3 (4.00-5.60); RDW 12.6 % (11.9-15.9); WHITE BLOOD COUNT 7.5 K/mm3 (4.0-10.0)
[2022-07-02 07:25] LABS: INR 1.01 (0.83-1.09); PROTHROMBIN TIME (PATIENT) 11.7 SEC (9.7-13.0)
[2022-07-02 07:28] LABS: CALCIUM 9.1 mg/dL (8.5-10.1)
[2022-07-02 07:29] LABS: BLOOD UREA NITROGEN 9.2 mg/dL (7-18); MAGNESIUM 2.2 mg/dL (1.8-2.4)
[2022-07-02 07:32] LABS: CREATININE 0.8 mg/dL (0.55-1.3); PHOSPHOROUS 4.4 mg/dL (2.5-4.9)
[2022-07-02 07:34] LABS: BILIRUBIN,TOTAL 0.4 mg/dL (0.2-1); TOT PROT 6.7 g/dl (6.4-8.2)
[2022-07-02 08:05] VITALS: BMI 19.6
[2022-07-02] MEDS: LORazepam 1 MG TABLET PO PRN ×2 (09:00→15:28)
[2022-07-02] MEDS: FOLIC ACID 1 MG TABLET (FP) PO SCH (09:51)
[2022-07-02] MEDS: THIAMINE HCL 200 MG/2 ML VIAL IVPB SCH (09:52)
[2022-07-02] MEDS: ENOXAPARIN NA (PORCINE) 40 MG/0.4 ML DISP.SYRIN SQ SCH (09:52)
[2022-07-02 10:01] VITALS: RESP 20
[2022-07-02] MEDS: COLLAGENASE CLOSTRIDIUM HIST. 30 GRAMS TUBE TP SCH (15:28)
[2022-07-02] MEDS: ACETAMINOPHEN 325 MG TABLET (FP) PO PRN ×2 (15:28→21:59)
[2022-07-03 09:14] LABS: BASO % 0.9 % (0-2.0); EOS % 2.8 % (0-4.5); HEMATOCRIT 40.8 % (35.4-49); HEMOGLOBIN 14.2 GM/dL (11.7-16.9); LYMPH % 15.3 % (8-40); MCH 35.7 pg (25.7-33.7); MCHC 34.7 g/dl (32.0-35.9); MEAN CELL VOLUME 102.8 fl (80-96); MEAN PLT VOLUME 6.8 fl (7.5-11.1); MONO % 17.2 % (3.8-10.2); NEUT % 63.8 % (42.8-82.8); PLATELET COUNT 438 10^3/uL (134-434); RBC 3.97 M/mm3 (4.00-5.60); RDW 12.5 % (11.9-15.9); WHITE BLOOD COUNT 6.8 K/mm3 (4.0-10.0)
[2022-07-03 09:17] LABS: BLOOD UREA NITROGEN 13.9 mg/dL (7-18); CALCIUM 9.7 mg/dL (8.5-10.1)
[2022-07-03 09:20] LABS: CREATININE 0.8 mg/dL (0.55-1.3)
[2022-07-03 10:07] LABS: ERYTHROCYTE SEDIMENTATION RATE 35 mm/hr (0-20)
[2022-07-03] MEDS: THIAMINE HCL 200 MG/2 ML VIAL IVPB SCH ×2 (10:16→13:11)
[2022-07-03] MEDS: FOLIC ACID 1 MG TABLET (FP) PO SCH (10:16)
[2022-07-03] MEDS: ENOXAPARIN NA (PORCINE) 40 MG/0.4 ML DISP.SYRIN SQ SCH (10:17)
[2022-07-03 10:42] VITALS: BP 120/71; PULSE 86; TEMP 98.3
[2022-07-03] MEDS: LORazepam 1 MG TABLET PO PRN (10:42)
[2022-07-03] MEDS ORDERED: THIAMINE HCL 200 MG/2 ML VIAL IM SCH (11:45)
[2022-07-03] MEDS: COLLAGENASE CLOSTRIDIUM HIST. 30 GRAMS TUBE TP SCH ×2 (17:21→18:06)
[2022-07-03] MEDS ORDERED: NICOTINE 21 MG/24 HOURS TOPICAL PATCH TD SCH (18:30)
== END 2022-07-03 21:50 | disposition left against medical advice (07) ==
LOC: JER 20:13 → JERBED 07-02 00:51 → J8W 07-02 07:34
PROVIDERS: ADMIT Internal Medicine; ATTEND Internal Medicine
PROC: 3E03329 Introduction of Other Anti-infective into Peripheral Vein, Percutaneous Approach (ICD-10-PCS; principal; 2022-07-02)
PROC: 3E023GC Introduction of Other Therapeutic Substance into Muscle, Percutaneous Approach (ICD-10-PCS; 2022-07-02)
PROC: 3E023GC Introduction of Other Therapeutic Substance into Muscle, Percutaneous Approach (ICD-10-PCS; 2022-07-02)
DX: F10.929 Alcohol use, unspecified with intoxication, unspecified (principal); S92.401A Displaced unspecified fracture of right great toe, initial encounter for closed fracture; V09.9XXA Pedestrian injured in unspecified transport accident, initial encounter; Y93.89 Activity, other specified; Y92.410 Unspecified street and highway as the place of occurrence of the external cause; F17.210 Nicotine dependence, cigarettes, uncomplicated; L40.9 Psoriasis, unspecified; L53.8 Other specified erythematous conditions; F14.20 Cocaine dependence, uncomplicated; Z59.00 Homelessness unspecified; I96 Gangrene, not elsewhere classified
CPT/HCPCS: 0241U-QW; 36415; 73630-TC-RT-FY; 73706-TC-RT; 80048; 80053; 80307; 82962; 83735; 84100; 85025; 85027; 85610; 85651; 86140; 87040; 93005; 93010; 96365; 96372; 99285-25; G0378; J0875; Q9967

== ENCOUNTER 2022-07-17 09:25 | Emergency (ER) | payer OTHER ==
[2022-07-17 09:40] VITALS: BP 142/77; PULSE 98; RESP 18; TEMP 98.2; BMI 21.8
== END 2022-07-17 11:10 | disposition left against medical advice (07) ==
LOC: JER 09:25
DX: S91.101A Unspecified open wound of right great toe without damage to nail, initial encounter (principal); V03.10XA Pedestrian on foot injured in collision with car, pick-up truck or van in traffic accident, initial encounter
CPT/HCPCS: 99282-25

== ENCOUNTER 2022-07-24 15:39 | Emergency (ER) | payer OTHER ==
[2022-07-24 15:45] VITALS: BP 110/74; PULSE 98; RESP 18; TEMP 98.2; BMI 17.9
[2022-07-24] MEDS ORDERED: VANCOMYCIN 1 GM in D5W (PRE-DOCKED) 1,000 MG/250 ML IVPB ONE (16:48)
[2022-07-24] MEDS ORDERED: PIPERACILLIN/TAZOB 3.375 GM 3.375 GM in DEXTROSE 5%-WATER - 50 ML IVPB ONE (16:48)
[2022-07-24] MEDS ORDERED: PIPERACILLIN/TAZOB 3.375 GM 3.375 GM/50 ML BAG IVPB ONE (17:44)
[2022-07-24 18:19] LABS: BASO % 0.6 % (0-2.0); EOS % 1.7 % (0-4.5); HEMATOCRIT 38.8 % (35.4-49); HEMOGLOBIN 13.7 GM/dL (11.7-16.9); MCHC 35.2 g/dl (32.0-35.9); MEAN CELL VOLUME 99.5 fl (80-96); MEAN PLT VOLUME 7.7 fl (7.5-11.1); MONO % 8.4 % (3.8-10.2); NEUT % 69.3 % (42.8-82.8); PLATELET COUNT 480 10^3/uL (134-434); RDW 12.6 % (11.9-15.9); WHITE BLOOD COUNT 7.3 K/mm3 (4.0-10.0)
[2022-07-24 18:24] LABS: INR 0.83 (0.83-1.09); PROTHROMBIN TIME (PATIENT) 9.7 SEC (9.7-13.0)
[2022-07-24 18:25] LABS: CHLORIDE 102 mmol/L (98-107); SODIUM 131 mmol/L (136-145)
[2022-07-24 18:27] LABS: ACTIVATED PTT 22.9 SECONDS (25.2-36.5); ALBUMIN 3.7 g/dl (3.4-5.0); ANION GAP 7 MMOL/L (8-16); BLOOD UREA NITROGEN 13.7 mg/dL (7-18); CO2 22 mmol/L (21-32); GLUCOSE,RANDOM 100 mg/dL (74-106)
[2022-07-24 18:30] LABS: CREATININE 0.9 mg/dL (0.55-1.3)
[2022-07-24 18:32] LABS: BILIRUBIN,TOTAL 0.3 mg/dL (0.2-1); TOT PROT 8.6 g/dl (6.4-8.2)
[2022-07-24 18:33] LABS: ALK PHOS 116 U/L (45-117)
[2022-07-24 18:36] LABS: SGOT/AST 118 U/L (15-37); SGPT/ALT 56 U/L (13-61)
[2022-07-24 18:59] LABS: ERYTHROCYTE SEDIMENTATION RATE 12 mm/hr (0-20)
== END 2022-07-24 18:20 | disposition left against medical advice (07) ==
LOC: JER 15:39
DX: M79.671 Pain in right foot (principal); V48.2XXA Person on outside of car injured in noncollision transport accident in nontraffic accident, initial encounter
CPT/HCPCS: 36415; 80053; 85025; 85610; 85651; 85730; 86140; 87040; 99283-25

== ENCOUNTER 2023-04-30 20:58 | Emergency (ER) | payer OTHER ==
[2023-04-30 21:26] VITALS: BMI 23.6
[2023-04-30] MEDS ORDERED: VANCOMYCIN/WATER 1250 MG 1,250 MG/250 ML BAG IVPB ONE (22:06)
[2023-04-30] MEDS ORDERED: PIPERACILLIN/TAZOB 4.5 GM 4.5 GM in DEXTROSE 5%-WATER 100 ML IVPB ONE (22:06)
[2023-05-01] MEDS ORDERED: DALBAVANCIN HCL 1,500 MG in DEXTROSE 5%-WATER - 500 ML IVPB ONE (00:39)
[2023-05-01] MEDS ORDERED: DALBAVANCIN HCL 500 MG VIAL (RESTRICTED TO ID ONLY) IVPB ONE (00:42)
[2023-05-01 01:16] LABS: BASO % 0.3 % (0-2.0); EOS % 0.9 % (0-4.5); HEMATOCRIT 38.2 % (35.4-49); HEMOGLOBIN 12.7 GM/dL (11.7-16.9); LYMPH % 17.1 % (8-40); MCH 34.4 pg (25.7-33.7); MCHC 33.3 g/dl (32.0-35.9); MEAN CELL VOLUME 103.3 fl (80-96); MEAN PLT VOLUME 6.4 fl (7.5-11.1); MONO % 11.4 % (3.8-10.2); NEUT % 70.3 % (42.8-82.8); PLATELET COUNT 400 10^3/uL (134-434); RDW 12.7 % (11.9-15.9); WHITE BLOOD COUNT 6.8 K/mm3 (4.0-10.0)
[2023-05-01 01:36] LABS: POTASSIUM 4.4 mmol/L (3.5-5.1)
[2023-05-01 01:38] LABS: ALBUMIN 3.4 g/dl (3.4-5.0); BLOOD UREA NITROGEN 13.2 mg/dL (7-18); CALCIUM 9.3 mg/dL (8.5-10.1)
[2023-05-01 01:41] LABS: CREATININE 0.6 mg/dL (0.55-1.3)
[2023-05-01 01:43] LABS: BILIRUBIN,TOTAL 0.2 mg/dL (0.2-1); TOT PROT 7.2 g/dl (6.4-8.2)
[2023-05-01 01:57] VITALS: BP 125/69; PULSE 95; RESP 18; TEMP 98.1
== END 2023-05-01 04:55 | disposition home or self-care (01) ==
LOC: JER 20:58
DX: M79.671 Pain in right foot (principal); S91.101A Unspecified open wound of right great toe without damage to nail, initial encounter; L53.9 Erythematous condition, unspecified; R22.41 Localized swelling, mass and lump, right lower limb; W19.XXXA Unspecified fall, initial encounter; Z59.00 Homelessness unspecified
CPT/HCPCS: 36415; 73630-TC-RT-FY; 80053; 85025; 85651; 86140; 99283-25; J0875

== ENCOUNTER 2023-05-03 00:12 | Observation (INO) | payer OTHER ==
[2023-05-03 00:23] VITALS: BMI 27.3
[2023-05-03 02:33] LABS: BASO % 0.7 % (0-2.0); EOS % 0.6 % (0-4.5); HEMATOCRIT 40.8 % (35.4-49); HEMOGLOBIN 13.8 GM/dL (11.7-16.9); LYMPH % 15.5 % (8-40); MCH 34.9 pg (25.7-33.7); MCHC 33.9 g/dl (32.0-35.9); MEAN PLT VOLUME 6.4 fl (7.5-11.1); MONO % 9.5 % (3.8-10.2); NEUT % 73.7 % (42.8-82.8); PLATELET COUNT 445 10^3/uL (134-434); RBC 3.96 M/mm3 (4.00-5.60); RDW 12.8 % (11.9-15.9); WHITE BLOOD COUNT 8.1 K/mm3 (4.0-10.0)
[2023-05-03 02:51] LABS: POTASSIUM 4.8 mmol/L (3.5-5.1)
[2023-05-03 02:53] LABS: ALBUMIN 3.9 g/dl (3.4-5.0); CALCIUM 9.8 mg/dL (8.5-10.1)
[2023-05-03 02:54] LABS: BLOOD UREA NITROGEN 12.2 mg/dL (7-18)
[2023-05-03 02:55] LABS: CREATININE 0.7 mg/dL (0.55-1.3)
[2023-05-03 02:58] LABS: BILIRUBIN,TOTAL 0.4 mg/dL (0.2-1); TOT PROT 8.3 g/dl (6.4-8.2)
[2023-05-03] MEDS ORDERED: VANCOMYCIN/WATER 1250 MG 1,250 MG/250 ML BAG IVPB ONE ×2 (03:53→04:06)
[2023-05-03] MEDS ORDERED: LORazepam 1 MG TABLET PO PRN (05:25)
[2023-05-03] MEDS ORDERED: LORazepam 1 MG TABLET PO ONE (05:25)
[2023-05-03] MEDS ORDERED: PIPERACILLIN/TAZOB 3.375 GM 3.375 GM in DEXTROSE 5%-WATER - 50 ML IVPB SCH (05:30)
[2023-05-03] MEDS ORDERED: LORazepam 1 MG TABLET ONE (05:50)
[2023-05-03] MEDS ORDERED: PIPERACILLIN/TAZOB 3.375 GM 3.375 GM/50 ML BAG IVPB ONE (05:50)
[2023-05-03] MEDS ORDERED: IBUPROFEN 600 MG TABLET (FP) PO PRN (06:41)
[2023-05-03 07:14] VITALS: BP 160/106; PULSE 102; RESP 18; TEMP 98.3
[2023-05-03 07:34] LABS: BASO % 1.1 % (0-2.0); EOS % 0.7 % (0-4.5); HEMATOCRIT 38.4 % (35.4-49); HEMOGLOBIN 12.9 GM/dL (11.7-16.9); MCH 34.8 pg (25.7-33.7); MCHC 33.6 g/dl (32.0-35.9); MEAN CELL VOLUME 103.5 fl (80-96); MEAN PLT VOLUME 6.3 fl (7.5-11.1); MONO % 12.2 % (3.8-10.2); PLATELET COUNT 392 10^3/uL (134-434); RBC 3.71 M/mm3 (4.00-5.60); RDW 12.9 % (11.9-15.9); WHITE BLOOD COUNT 7.5 K/mm3 (4.0-10.0)
[2023-05-03 07:53] LABS: POTASSIUM 4.4 mmol/L (3.5-5.1)
[2023-05-03 07:57] LABS: CALCIUM 9.5 mg/dL (8.5-10.1)
[2023-05-03 07:58] LABS: ALBUMIN 3.6 g/dl (3.4-5.0); BLOOD UREA NITROGEN 13.8 mg/dL (7-18); MAGNESIUM 2.2 mg/dL (1.8-2.4)
[2023-05-03 08:00] LABS: CREATININE 0.8 mg/dL (0.55-1.3); PHOSPHOROUS 3.2 mg/dL (2.5-4.9)
[2023-05-03 08:03] LABS: BILIRUBIN,TOTAL 0.6 mg/dL (0.2-1); TOT PROT 7.5 g/dl (6.4-8.2)
[2023-05-03] MEDS ORDERED: NICOTINE 21 MG/24 HOURS TOPICAL PATCH TD SCH (10:00)
[2023-05-03] MEDS ORDERED: TACROLIMUS TP SCH (10:00)
[2023-05-03] MEDS ORDERED: CALCIPOTRIENE TP SCH (10:00)
[2023-05-03] MEDS ORDERED: ENOXAPARIN NA (PORCINE) 40 MG/0.4 ML DISP.SYRIN SQ SCH (10:00)
[2023-05-03] MEDS ORDERED: LORazepam 1 MG TABLET PO SCH (11:00)
[2023-05-04] MEDS ORDERED: PIPERACILLIN/TAZOB 3.375 GM 3.375 GM in DEXTROSE 5%-WATER - 50 ML IVPB SCH (02:00)
[2023-05-05] MEDS ORDERED: LORazepam 1 MG TABLET PO SCH (05:00)
[2023-05-06] MEDS ORDERED: LORazepam 0.5 MG TABLET PO PRN
[2023-05-06] MEDS ORDERED: LORazepam 0.5 MG TABLET PO SCH (05:00)
[2023-05-07] MEDS ORDERED: LORazepam 0.5 MG TABLET PO ONE (05:00)
== END 2023-05-03 07:55 | disposition left against medical advice (07) ==
LOC: JER 00:12 → JERBED 04:37
PROVIDERS: ADMIT Internal Medicine
DX: F10.129 Alcohol abuse with intoxication, unspecified (principal); F14.10 Cocaine abuse, uncomplicated; Z59.00 Homelessness unspecified; L40.9 Psoriasis, unspecified; F17.200 Nicotine dependence, unspecified, uncomplicated
CPT/HCPCS: 36415; 70450-TC; 73630-TC-RT-FY; 73701-TC-RT; 80053; 80307; 83036; 83735; 84100; 85025; 85651; 86140; 87040; 93005; 93010; 96365; 96367; 99285-25; G0378; Q9967

== ENCOUNTER 2024-07-17 16:32 | Emergency (ER) | payer SELFPAY ==
[2024-07-17 17:01] VITALS: BP 0/0; BMI 29.0
[2024-07-18] MEDS ORDERED: IBUPROFEN 600 MG TABLET (FP) PO ONE (05:20)
== END 2024-07-18 05:32 | disposition home or self-care (01) ==
LOC: FER 16:32
DX: F10.129 Alcohol abuse with intoxication, unspecified (principal)
CPT/HCPCS: 99282-25

== ENCOUNTER 2024-07-20 10:48 | Observation (INO) | payer SELFPAY ==
[2024-07-20 11:45] VITALS: BMI 24.4
[2024-07-20 15:13] LABS: BASO % 0.8 % (0-2.0); EOS % 2.2 % (0-4.5); HEMATOCRIT 42.7 % (35.4-49); HEMOGLOBIN 14.1 GM/dL (11.7-16.9); LYMPH % 33.6 % (8-40); MCH 31.8 pg (25.7-33.7); MEAN CELL VOLUME 96.5 fl (80-96); MEAN PLT VOLUME 6.2 fl (7.5-11.1); MONO % 10.1 % (3.8-10.2); NEUT % 53.3 % (42.8-82.8); PLATELET COUNT 375 10^3/uL (134-434); RBC 4.43 M/mm3 (4.00-5.60); RDW 13.7 % (11.9-15.9); WHITE BLOOD COUNT 5.8 K/mm3 (4.0-10.0)
[2024-07-20 15:19] LABS: INR 0.94 (0.83-1.09); PROTHROMBIN TIME (PATIENT) 10.2 SEC (9.7-13.0)
[2024-07-20 15:22] LABS: ACTIVATED PTT 33.1 SECONDS (25.2-36.5)
[2024-07-20 15:37] LABS: POTASSIUM 4.8 mmol/L (3.5-5.1)
[2024-07-20 15:38] LABS: CALCIUM 9.3 mg/dL (8.5-10.1)
[2024-07-20 15:39] LABS: ALBUMIN 3.6 g/dl (3.4-5.0); BLOOD UREA NITROGEN 9.5 mg/dL (7-18)
[2024-07-20 15:42] LABS: CREATININE 0.9 mg/dL (0.55-1.3)
[2024-07-20 15:44] LABS: BILIRUBIN,TOTAL 0.5 mg/dL (0.2-1)
[2024-07-20 15:54] LABS: ERYTHROCYTE SEDIMENTATION RATE 20 mm/hr (0-20)
[2024-07-20] MEDS ORDERED: VANCOMYCIN 1 GM PREMIX (F) 1 GM/200 ML BAG ONE (16:22)
[2024-07-20] MEDS: VANCOMYCIN 1,000 MG in DEXTROSE 5%-WATER - 250 ML IVPB ONE (16:51)
[2024-07-20] MEDS ORDERED: LORazepam 1 MG TABLET PO PRN (19:48)
[2024-07-20 19:56] LABS: PH,URINE 5.5 (5.0-8.0); URINE APPEARANCE CLEAR; URINE BILIRUBIN NEGATIVE (NEGATIVE); URINE COLOR YELLOW; URINE GLUCOSE (UA) NEGATIVE (NEGATIVE); URINE KETONE NEGATIVE (NEGATIVE); URINE LEUK ESTERASE NEGATIVE (NEGATIVE); URINE NITRITE NEGATIVE (NEGATIVE); URINE PROTEIN NEGATIVE (NEGATIVE); URINE UROBILINOGEN 0.2 mg/dL (0.2-1.0)
[2024-07-20] MEDS ORDERED: PIPERACILLIN/TAZOB 3.375 GM 3.375 GM in DEXTROSE 5%-WATER - 50 ML IVPB SCH (20:00)
[2024-07-20] MEDS ORDERED: PIPERACILLIN/TAZOB 3.375 GM 50 ML IVPB SCH (20:00)
[2024-07-20 20:03] LABS: COCAINE, UR NEGATIVE (NEGATIVE); URINE BENZODIAZEPINES NEGATIVE (NEGATIVE)
[2024-07-20 20:04] LABS: METHADONE, UR NEGATIVE (NEGATIVE); OPIATES, URI NEGATIVE (NEGATIVE); PHENCYCLIDINE,URINE NEGATIVE (NEGATIVE); URINE AMPHETAMINES NEGATIVE (NEGATIVE); URINE BARBITURATES NEGATIVE (NEGATIVE)
[2024-07-20] MEDS: LACTULOSE 20 GM/30 ML UDC (FOR ORAL USE ONLY) PO SCH (21:49)
[2024-07-20] MEDS: PIPERACILLIN/TAZOB 3.375 GM 50 ML IVPB SCH (21:49)
[2024-07-20 22:59] VITALS: RESP 18
[2024-07-21] MEDS: ACETAMINOPHEN 325 MG TABLET (FP) PO PRN (03:14)
[2024-07-21 04:20] VITALS: TEMP 98.2
[2024-07-21] MEDS: DOXYCYCLINE INJECTION 100 MG in DEXTROSE 5%-WATER 100 ML IVPB SCH (06:05)
[2024-07-21 09:05] VITALS: BP 144/95; PULSE 91
[2024-07-21] MEDS: ENOXAPARIN NA (PORCINE) 40 MG/0.4 ML DISP.SYRIN SQ SCH (09:11)
[2024-07-21] MEDS: THIAMINE 100 MG TABLET PO SCH (09:12)
[2024-07-21 09:17] LABS: HEMATOCRIT 39.3 % (35.4-49); HEMOGLOBIN 13.3 GM/dL (11.7-16.9); MCH 32.4 pg (25.7-33.7); MCHC 33.9 g/dl (32.0-35.9); MEAN CELL VOLUME 95.6 fl (80-96); MEAN PLT VOLUME 6.5 fl (7.5-11.1); PLATELET COUNT 354 10^3/uL (134-434); RBC 4.11 M/mm3 (4.00-5.60); RDW 13.7 % (11.9-15.9); WHITE BLOOD COUNT 5.6 K/mm3 (4.0-10.0)
[2024-07-21 09:54] LABS: CALCIUM 9.3 mg/dL (8.5-10.1)
[2024-07-21 09:58] LABS: CREATININE 0.9 mg/dL (0.55-1.3); PHOSPHOROUS 3.5 mg/dL (2.5-4.9)
== END 2024-07-21 10:21 | disposition left against medical advice (07) ==
LOC: JER 10:48 → JERBED 16:27 → J6S 20:23
PROVIDERS: ADMIT Student in an Organized Health Care Education/Training Program; ATTEND Student in an Organized Health Care Education/Training Program
PROC: 3E03329 Introduction of Other Anti-infective into Peripheral Vein, Percutaneous Approach (ICD-10-PCS; principal; 2024-07-20)
PROC: 3E023GC Introduction of Other Therapeutic Substance into Muscle, Percutaneous Approach (ICD-10-PCS; 2024-07-20)
PROC: 3E033GC Introduction of Other Therapeutic Substance into Peripheral Vein, Percutaneous Approach (ICD-10-PCS; 2024-07-20)
DX: F10.920 Alcohol use, unspecified with intoxication, uncomplicated (principal); F14.90 Cocaine use, unspecified, uncomplicated; E72.20 Disorder of urea cycle metabolism, unspecified; L40.9 Psoriasis, unspecified; Z59.00 Homelessness unspecified; F17.200 Nicotine dependence, unspecified, uncomplicated
CPT/HCPCS: 36415; 80048; 80053; 80307; 81003; 82140; 83735; 84100; 85025; 85027; 85610; 85651; 85730; 86140; 87086; 96365; 96367; 96372; 99285-25; G0378